=== PATIENT | female | born 1995 | race Two or more races ===

== ENCOUNTER 2024-07-10 15:04 | Outpatient (RCR) | payer MEDICAID, SELFPAY | END 2024-07-30 23:59 | disposition home or self-care (01) | LOC: SCTC 15:04 | PROVIDERS: PCP Nurse Practitioner Family; Referring Provider Nurse Practitioner Family; Visit Provider Nurse Practitioner Family | DX: D50.9 Iron deficiency anemia, unspecified (principal); N92.0 Excessive and frequent menstruation with regular cycle; E03.9 Hypothyroidism, unspecified | CPT/HCPCS: 99212; G0463 ==

== ENCOUNTER 2025-01-28 15:46 | Emergency (ER) | payer MEDICAID, SELFPAY ==
[2025-01-28 15:47] VITALS: BMI 21.7
[2025-01-28 16:49] VITALS: BP 130/71; PULSE 77; RESP 20; TEMP 37.3; O2SAT 99
--- NOTE | 2025-01-28 17:10 | XR_ITS ---
Examination: CT abdomen and pelvis without contrast. Coronal 3-D reconstructions. Sagittal 2-D reconstructions. Date and time of exam: January 28, 2025, 1858 hours INDICATIONS: Onset right-sided flank pain radiating to the pelvis 2 days CTDI: vol (mGy): 5.92 DLP: (mGycm): 325 Technique: Axial images of the abdomen have been obtained, 3 mm slice thickness Intravenous contrast material has not been administered. Low dose protocols were performed. One or more of the following dose reduction techniques were used; automated exposure control, adjustment of the mA and/or KV according to patient size, use of iterative reconstruction technique. 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
--- NOTE | 2025-01-28 17:10 | EDRME_ITS ---
Rapid Medical Screening Exam E Arrival date/time: 01/28/25 15:46 29-year-old female presents to the emergency department today for complaints of right-sided flank pain radiating to abdomen Chief Complaint: Abdominal Pain Time Seen by Provider: 01/28/25 15:55 Vital signs: Vital Signs Temperature 99.1 F 01/28/25 16:49 Pulse Rate 77 01/28/25 16:49 Respiratory Rate 20 01/28/25 16:49 Blood Pressure 130/71 01/28/25 16:49 Pulse Oximetry (%) 99 01/28/25 16:49 Oxygen Delivery Method Room Air 01/28/25 16:49 Exam: On exam patient has right flank pain radiating to the inguinal region Neurological: GCS 15 Negative Portillo sign negative [place]'s point tenderness Clinical Impression: Clinically patient appears to be quite a bit of pain Lab work and imaging ordered
[2025-01-28] MEDS: HYDROcodone/APAP 5/325 TABLET 1 TAB PO (17:40)
[2025-01-28] MEDS: KETOROLAC INJ 30 MG/ML VIAL IM (17:40)
[2025-01-28] MEDS: ONDANSETRON ODT 4 MG TABRAP PO (17:40)
[2025-01-28 17:48] LABS: Basophils # (Auto) 0.0 Thou/mm3 (0.0-0.2); Basophils % (Auto) 0 % (0-2.5); Eosinophils # (Auto) 0.1 Thou/mm3 (0.0-0.5); Eosinophils % (Auto) 1 % (0-10); Hematocrit 29.2 % (36.0-46.0); Hemoglobin 10.1 g/dL (12.0-16.0); Immature Granulocytes Auto 0.04 Thou/mm3 (0.00-0.00); Lymphocytes # (Auto) 1.3 Thou/mm3 (1.0-4.8); Lymphocytes % (Auto) 13 % (10-50); Mean Corpuscular HGB Conc 34.6 g/dl (31.0-37.0); Mean Corpuscular Hemoglobin 30.1 pg (25.0-35.0); Mean Corpuscular Volume 87 fL (80-100); Monocytes # (Auto) 0.6 Thou/mm3 (0.0-0.8); Monocytes % (Auto) 6 % (0-12); Neutrophils # (Auto) 8.1 Thou/mm3 (1.8-7.7); Neutrophils % (Auto) 80 % (37-80); Nucleated Red Blood Cell # 0.00 Thou/mm3 (0.00-0.00); Nucleated Red Blood Cell % 0 /100 WBC (0); Platelet Count 247 Thou/mm3 (140-440); RDW Standard Deviation 40.8 fL (36.4-46.3); Red Blood Count 3.35 Miln/mm3 (4.00-5.20); White Blood Count 10.1 Thou/mm3 (3.6-11.0)
[2025-01-28 18:06] LABS: Collection Type, Urine Clean Catch
[2025-01-28 18:29] LABS: Alanine Aminotransferase 8 U/L (10-49); Albumin, Serum 4.9 gm/dL (3.5-5.0); Albumin/Globulin Ratio 2.9 (1.2-2.2); Alkaline Phosphatase 50 U/L (46-116); Anion Gap 11 (7-16); Aspartate Amino Transferase 17 U/L (0-34); BUN/Creatinine Ratio 13 Ratio (12-20); Bilirubin,Total 0.6 mg/dL (0.3-1.2); Blood Urea Nitrogen 10 mg/dL (9-23); Calcium 8.8 mg/dL (8.3-10.6); Calcium (Corrected) 8.8 mg/dL (8.5-10.1); Carbon Dioxide 25.1 mMol/L (20.0-31.0); Chloride 108 mMol/L (98-107); Creatinine (Component) 0.8 mg/dL (0.6-1.3); Estimated Creatinine Clearance 97.1 mL/min (>60); Globulin 1.7 gm/dL (2.3-3.5); Glucose 108 mg/dL (74-106); Lipase 25 U/L (12-53); Osmolality,Calculated 286 (275-295); Potassium 3.7 mMol/L (3.4-5.1); Sodium 144 mMol/L (136-145); Total Protein 6.6 gm/dL (5.7-8.2); eGFR > 60 See Note
[2025-01-28 18:31] LABS: HCG Qualitative,Urine Negative
[2025-01-28 18:38] LABS: Bilirubin,Urine Negative (Negative); Blood,Urine 3+ (Negative); Clarity,Urine Turbid (Clear/Hazy); Color,Urine Lt-Yellow (Lt Yel-Yel); Culture Indicated,Urine Yes; Glucose, Urine Negative (Negative); Ketones,Urine Negative (Negative); Leukocyte Esterase,Urine Positive (Negative); Nitrite,Urine Negative (Negative); PH,Urine 5.5 (5.0-7.0); Protein,Urine Negative (Neg - Trace); RBC,Urine 779 /hpf (0-3); Specific Gravity,Urine 1.019 (1.001-1.035); Squamous Epithelial Cell,Urine 9 /hpf (0-5); Urobilinogen,Urine Negative mg/dL (0.0-1.0); WBC,Urine 22 /hpf (0-5)
--- NOTE | 2025-01-28 20:50 | XR_ITS ---
Examination: CT abdomen with intravenous contrast CT pelvis with intravenous contrast 2-D coronal reconstructions 2-D sagittal reconstructions Date and time of exam: January 28, 2025, 10 0 6:00 p.m., comparison January 28, 2025 1902 hours INDICATIONS: Right lower abdominal pain this week. CTDI: vol (mGy) 6.29 DLP: (mGycm) 326 Technique: Multiple axial sections of the abdomen and pelvis have been obtained. 64 slice high-resolution scanner used. 3 mm axial sections have been obtained, post intravenous injection 60 cc Isovue-370 2-D sagittal, coronal reconstructions obtained. Low dose protocols were performed. One or more of the following dose reduction techniques were used; automated exposure control, adjustment of the mA and/or KV according to patient size, use of iterative reconstruction technique. Findings: No focal liver or splenic lesions No gallstones Mild hydronephrosis on the right Dependent density in the right renal pelvis consistent with hemorrhage No renal or ureteral calculi No bowel obstruction Normal appendix Mild free fluid in the pelvis Multiple right adnexal septated small cysts Bladder intact Osseous structures intact IMPRESSION: Findings remain consistent with hemorrhage in the dilated right renal collecting system, recommend urology consultation and retrograde pyelograms follow-up Impression of the earlier study should read: Suspect primary hepatocellular disease
[2025-01-28 20:58] VITALS: BP 107/67; PULSE 65; RESP 14; TEMP 36.8; O2SAT 99
--- NOTE | 2025-01-28 21:23 | PD.EDABDPN ---
ED Abdominal Pain RME/HPI General Chief Complaint: Abdominal Pain Stated complaint: R LOWER BACK RADIATING TO R LOWER ABD PAIN Time seen by provider: 01/28/25 15:55 Arrival date/time: 01/28/25 15:46 RME / HPI RME / HPI narrative: 01/28/25 15:46 29-year-old female presents to the emergency department today for complaints of right-sided flank pain radiating to abdomen Dr. Vidales?s Main ED Evaluation: 29yo female with a history of hypothyroidism presents to the ED for a chief complaint of right lower back pain that radiates to her RLQ/pelvic area x 2 days. Patient denies any N/V, fever, chills, or any other associated symptoms. She denies any tobacco, alcohol, or illicit drug use. She denies any history of similar symptoms. NKA. Related Data Previous Rx's ?Medication ?Instructions ?Recorded ferrous sulfate 325 mg (65 mg 325 mg PO BID #60 tabs 03/27/20 iron) tablet ibuprofen 600 mg tablet 600 mg PO Q6H PRN pain #30 tabs 12/15/23 methocarbamol 750 mg tablet 750 mg PO TID PRN pain #20 tabs 12/15/23 Allergies Allergy/AdvReac Type Severity Reaction Status Date / Time No Known Allergies Allergy Verified 01/28/25 15:50 Review of Systems Review of Systems Systems Reviewed: All systems reviewed, normal except as documented Past Medical History Past Medical History CARDIAC: Negative Cardiac Disorders or Congestive Heart Failure RESPIRATORY: Positive Asthma; Negative Chronic Obstructive Pulmonary Disease (COPD) GENITOURINARY: Negative Renal Disease REPRODUCTIVE: Positive Previous Pregnancies (C SECTION 2016) ENDOCRINE: Positive Hypothyroidism; Negative Diabetes Mellitus Type 1 or Diabetes Mellitus Type 2 HEMATOLOGIC: Positive Anemia; Negative Sickle Cell Disease Surgical History SURGICAL: Positive Section Social History SMOKING STATUS: Never smoker SUBSTANCE USE: does not use ED Exam Narrative Physical exam: Generally patient is alert in no obvious distress, heart regular rate and rhythm, lungs clear to auscultation equal bilaterally, abdomen soft bowel sounds present nondistended nontender, musculoskeletal exam showed the patient had mild right-sided costovertebral angle tenderness Course Course Course Narrative: [facility] declined the patient for transfer due to not having urology available. 2330: Discussed case with [facility]'s transfer center. Discussed patients ED course, exam findings, labs, and radiology results. Awaiting callback. 0004: Discussed case with Dr. Knight, urologist from [facility], regarding possible transfer. Discussed patients ED course, exam findings, labs, and radiology results. Recommends having the patient follow-up with him as an outpatient. Quality Measures none Orders Category Date Time Status CT Screening NOW Care 01/28/25 20:51 Active Insert IV NOW Care 01/28/25 21:[address] abdomen pelvis w con Stat Exams 01/28/25 20:[address] abdomen pelvis wo con Stat Exams 01/28/25 17:10 Completed CBC Stat Lab 01/28/25 17:34 Completed Comprehensive Metabolic Panel Stat Lab 01/28/25 17:34 Completed HCG Qualitative,Urine Stat Lab 01/28/25 17:48 Completed Lipase Stat Lab 01/28/25 17:34 Completed UA, C/S IF [Urinalysis, C/S if Indicated] Stat Lab 01/28/25 17:48 Completed Urine Culture Stat Lab 01/28/25 17:48 Received HYDROcodone*/APAP 5/325 [Kidder 5/325] Med 01/28/25 17:09 Discontinued 1 tab PO X1 ONE Ketorolac Inj [Toradol Inj] Med 01/28/25 17:09 Discontinued 30 mg IM X1 ONE Morphine* Inj Med 01/28/25 22:45 Discontinued 4 mg IV X1 ONE Ondansetron Odt [Zofran Odt] Med 01/28/25 17:09 Discontinued 4 mg PO X1 ONE Vital Signs Vital signs: Vital Signs Temperature 99.1 F 01/28/25 16:49 Pulse Rate 77 01/28/25 16:49 Respiratory Rate 20 01/28/25 16:49 Blood Pressure 130/71 01/28/25 16:49 Pulse Oximetry (%) 99 01/28/25 16:49 Oxygen Delivery Method Room Air 01/28/25 16:49 Abdominal Pain MDM MDM Narrative MDM Narrative:: Scribe Attestation: 01/28/25 - I, Priscilla Yusuf, am scribing for and in the presence of Dr. Vidales. Patient is nontoxic in appearance. Patient is afebrile. There is no leukocytosis. Renal function is normal. CT scan done of the abdomen pelvis with IV contrast showed evidence for possible hemorrhage in the right renal pelvis with mild to moderate hydronephrosis. No renal or ureteral calculi were seen. Urinalysis showed evidence for RBCs and WBCs but no bacteria. I do not believe the patient to be infected. I spoke with urologist from [place], Dr. KNIGHT who is willing to see the patient as an outpatient. Since the patient's pain is controlled and the patient is nontoxic in appearance with stable vital signs he does not believe this patient needs to be transferred. Patient data External records reviewed:: [facility] previous records (Per chart review, patient was seen here on 02/21/19 for abdominal pain.) Clinical information provided by:: patient Social determinants that could affect healthcare access:: none Patient has the following chronic illnesses:: asthma, anemia, hypothyroidism How is presenting disease/condition affected by chronic disease/condition?: uneffected by Evaluation data The following diagnostics were reviewed and interpreted by me:: lab results and radiology exam(s) Lab and/or radiology exams considered but not ordered:: none Interpretation Summary: [facility] Report Signed Patient: MAMADOU SHAY. Record#: [id number] Birthdate: 1995 Age/Sex: 29 / F Location: [facility] Attending Dr: Ordering Physician: Deidre ALVAREZ)Valdo NP Date of Service: 01/28/25 Procedure(s): CT abdomen pelvis wo con Accession Number(s): [id number] cc: Deidre ALVAREZ),Valdo PHILLIPS; Pritesh Cuellar MD~ Examination: CT abdomen and pelvis without contrast. Coronal 3-D reconstructions. Sagittal 2-D reconstructions. Date and time of exam: January 28, 2025, 1858 hours INDICATIONS: Onset right-sided flank pain radiating to the pelvis 2 days CTDI: vol (mGy): 5.92 DLP: (mGycm): 325 Technique: Axial images of the abdomen have been obtained, 3 mm slice thickness Intravenous contrast material has not been administered. Low dose protocols were performed. One or more of the following dose reduction techniques were used; automated exposure control, adjustment of the mA and/or KV according to patient size, use of iterative reconstruction technique. 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 Record#: [id number] Birthdate: 1995 Age/Sex: 29 / F [facility] Att[facility] Dr: Ordering Physician: Renuka Bhagat PA-C Date of Service: 01/28/25 Procedure(s): CT abdomen pelvis w justice Accession Number(s): [id number] cc: Pritesh Cuellar MD; NO PRIMARY/FAMILY,PHYSICIAN; Renuka Bhagat PA-C~ Examination: CT abdomen with intravenous contrast CT pelvis with intravenous contrast 2-D coronal reconstructions 2-D sagittal reconstructions Date and time of exam: January 28, 2025, 10 0 6:00 p.m., comparison January 28, 2025 1902 hours INDICATIONS: Right lower abdominal pain this week. CTDI: vol (mGy) 6.29 DLP: (mGycm) 326 Technique: Multiple axial sections of the abdomen and pelvis have been obtained. 64 slice high-resolution scanner used. 3 mm axial sections have been obtained, post intravenous injection 60 cc Isovue-370 2-D sagittal, coronal reconstructions obtained. Low dose protocols were performed. One or more of the following dose reduction techniques were used; automated exposure control, adjustment of the mA and/or KV according to patient size, use of iterative reconstruction technique. Findings: No focal liver or splenic lesions No gallstones Mild hydronephrosis on the right Dependent density in the right renal pelvis consistent with hemorrhage No renal or ureteral calculi No bowel obstruction Normal appendix Mild free fluid in the pelvis Multiple right adnexal septated small cysts Bladder intact Osseous structures intact IMPRESSION: Findings remain consistent with hemorrhage in the dilated right renal collecting system, recommend urology consultation and retrograde pyelograms follow-up Impression of the earlier study should read: Suspect primary hepatocellular disease Dictated By: Pritesh Cuellar MD Signed By: <Electronically signed by Pritesh Cuellar MD in OV> 01/28/25 2244 Medications / Prescriptions Medications or Prescriptions considered but not ordered:: none Medication administrations:: Medication Administration History Discontinued Medications Hydrocodone Bitart/Acetaminophen (Hydrocodone/Apap 5/325 Tablet) 1 tab PO X1 ONE Stop: 01/28/25 17:10 Last Admin: 01/28/25 17:40 Dose: 1 tab Documented By: Ketorolac Tromethamine (Ketorolac Inj 30 Mg/Ml Vial) 30 mg IM X1 ONE Stop: 01/28/25 17:10 Last Admin: 01/28/25 17:40 Dose: 30 mg Documented By: Morphine Sulfate (Morphine Sulf Inj 4 Mg/Ml Vial) 4 mg IV X1 ONE Stop: 01/28/25 22:46 Last Admin: 01/28/25 23:01 Dose: 4 mg Documented By: AC Ondansetron HCl (Ondansetron Odt 4 Mg Tabrap) 4 mg PO X1 ONE; Protocol Stop: 01/28/25 17:10 Last Admin: 01/28/25 17:40 Dose: 4 mg Documented By: see above Consultations Consultation(s) initiated? (list below): Yes Diagnosis Differential diagnosis abdominal pain: other (See MDM) Most likely diagnosis given after review of the tests above:: see clinical impression below Admission Indicated Admission indicated?: not indicated Admission Request Was there a request for admission?: No Disposition Plan Disposition Plan: Discharge Discharge Attestation Discharge Attestation: The patient and all family members were given an opportunity to ask questions and understood the discharge instructions. Discharge instructions specifically effects, indications for sooner follow up or return to the emergency department, and the expected course of current diagnosis. Patient condition: Stable Discharge Plan Plan Patient Disposition: HOME (Self Care) Prescriptions/Referrals Prescriptions/Med Rec: No Action ferrous sulfate 325 mg (65 mg iron) tablet 325 mg PO BID Qty: 60 0RF ibuprofen 600 mg tablet 600 mg PO Q6H PRN (Reason: pain) Qty: 30 0RF methocarbamol 750 mg tablet 750 mg PO TID PRN (Reason: pain) Qty: 20 0RF Referrals: No Primary/Family,Physician [Primary Care Provider] - In 1 week Problem List Clinical Impression: Renal hemorrhage, right Patient/Caregiver Discharge Instructions Additional Instructions: Your case was discussed with urologist in [place], Dr. Knight. He will follow you up in his office. You may call his office at [phone] for an appointment time. Make this phone call later today. Print Language: Chadian Stand Alone Forms: [facility] Award Info., Patient Portal Info Letter
[2025-01-28] MEDS: MORPHINE SULF INJ 4 MG/ML VIAL IV (23:01)
[2025-01-28 23:04] VITALS: BP 127/76; PULSE 63; RESP 18; O2SAT 100
--- NOTE | 2025-01-28 23:30 | PC.NURSE ---
[address]. PT DECLINED NO UROLOGY SERVICES. [address] SENT, DR VALENTINE SPEAKING WITH TRN.
[2025-01-29 00:05] VITALS: BP 99/56; PULSE 66; RESP 18; TEMP 36.9; O2SAT 99
[2025-01-29 00:37] VITALS: PULSE 57; RESP 16; O2SAT 100
[2025-01-29] MEDS: KETOROLAC INJ 30 MG/ML VIAL IM (00:48)
== END 2025-01-29 01:00 | disposition home or self-care (01) ==
PROVIDERS: Nurse Practitioner Primary Care; Emergency Provider Emergency Medicine
DX: N13.30 Unspecified hydronephrosis (principal); E03.9 Hypothyroidism, unspecified
CPT/HCPCS: 36415; 74176; 74177; 80053; 81001; 81025; 83690; 85025; 87077; 87086; 87186; 96372; 99284; A4649; J1885; J2270; Q0162; Q9967; A9270

== ENCOUNTER 2025-01-30 14:05 | Emergency (ER) | payer MEDICAID, SELFPAY ==
[2025-01-30 14:18] VITALS: BP 103/69; PULSE 113; RESP 19; TEMP 37.2; O2SAT 98; BMI 20.7
--- NOTE | 2025-01-30 14:25 | XR_ITS ---
Examination: CT abdomen and pelvis without contrast. Coronal 3-D reconstructions. Sagittal 2-D reconstructions. Date and time of exam: January 30, 2025, 1551 hours INDICATIONS: Right-sided flank pain beginning 4 days ago CTDI: vol (mGy): 6.06 DLP: (mGycm): 343 Technique: Axial images of the abdomen have been obtained, 3 mm slice thickness Intravenous contrast material has not been administered. Low dose protocols were performed. One or more of the following dose reduction techniques were used; automated exposure control, adjustment of the mA and/or KV according to patient size, use of iterative reconstruction technique. Findings: No focal liver or splenic lesions No gallstones No pancreatic or adrenal mass. Subtle areas of hyperdensity in the right kidney with edema and perinephric stranding No ureteral calculi Moderate free fluid in the pelvis No bladder mass or bladder calculi Normal appendix No bowel obstruction IMPRESSION: Suspicious for right pyelonephritis Moderate free fluid in the pelvis, recommend pelvic sonography follow-up
--- NOTE | 2025-01-30 14:26 | PD.EDRME ---
Rapid Medical Screening Exam RME Arrival date/time: 01/30/25 14:05 29-year-old female presents to the emerged from today stating she has flank pain patient was seen on the and CT scan findings consistent with hemorrhage and a dilated right renal collecting system per radiologist Chief Complaint: Back Pain/Injury Vital signs: Vital Signs Temperature 99.0 F 01/30/25 14:18 Pulse Rate 113 H 01/30/25 14:18 Respiratory Rate 19 01/30/25 14:18 Blood Pressure 103/69 01/30/25 14:18 Pulse Oximetry (%) 98 01/30/25 14:18 Oxygen Delivery Method Room Air 01/30/25 14:18 Vital signs reviewed by provider: Yes Exam: On exam patient is tenderness in the flank region Clinical Impression: Labs and imaging ordered
[2025-01-30 15:04] LABS: Collection Type, Urine Clean Catch
[2025-01-30 15:08] LABS: Basophils # (Auto) 0.0 Thou/mm3 (0.0-0.2); Basophils % (Auto) 0 % (0-2.5); Eosinophils # (Auto) 0.0 Thou/mm3 (0.0-0.5); Eosinophils % (Auto) 0 % (0-10); Hematocrit 29.0 % (36.0-46.0); Hemoglobin 9.8 g/dL (12.0-16.0); Immature Granulocytes Auto 0.06 Thou/mm3 (0.00-0.00); Lymphocytes # (Auto) 0.9 Thou/mm3 (1.0-4.8); Lymphocytes % (Auto) 7 % (10-50); Mean Corpuscular HGB Conc 33.8 g/dl (31.0-37.0); Mean Corpuscular Hemoglobin 29.8 pg (25.0-35.0); Mean Corpuscular Volume 88 fL (80-100); Monocytes # (Auto) 0.9 Thou/mm3 (0.0-0.8); Monocytes % (Auto) 8 % (0-12); Neutrophils # (Auto) 10.2 Thou/mm3 (1.8-7.7); Neutrophils % (Auto) 84 % (37-80); Nucleated Red Blood Cell # 0.00 Thou/mm3 (0.00-0.00); Nucleated Red Blood Cell % 0 /100 WBC (0); Platelet Count 172 Thou/mm3 (140-440); RDW Standard Deviation 42.4 fL (36.4-46.3); Red Blood Count 3.29 Miln/mm3 (4.00-5.20); White Blood Count 12.2 Thou/mm3 (3.6-11.0)
[2025-01-30 15:22] LABS: INR 1.1 (0.9-1.3); Partial Thromboplastin Time 33.1 Seconds (22.0-36.0); Prothrombin Time 12.1 Seconds (9.0-12.2)
[2025-01-30 15:32] LABS: HCG Qualitative,Urine Negative
[2025-01-30 15:33] LABS: Bilirubin,Urine Negative (Negative); Blood,Urine 3+ (Negative); Clarity,Urine Turbid (Clear/Hazy); Color,Urine Yellow (Lt Yel-Yel); Glucose, Urine Negative (Negative); Ketones,Urine 1+ (Negative); Leukocyte Esterase,Urine Positive (Negative); Nitrite,Urine Negative (Negative); PH,Urine 6.5 (5.0-7.0); Protein,Urine 2+ (Neg - Trace); RBC,Urine 14 /hpf (0-3); Specific Gravity,Urine 1.014 (1.001-1.035); Squamous Epithelial Cell,Urine 10 /hpf (0-5); Urobilinogen,Urine Negative mg/dL (0.0-1.0); WBC,Urine 296 /hpf (0-5)
[2025-01-30 15:35] LABS: Alanine Aminotransferase 8 U/L (10-49); Albumin, Serum 4.7 gm/dL (3.5-5.0); Albumin/Globulin Ratio 2.5 (1.2-2.2); Alkaline Phosphatase 49 U/L (46-116); Anion Gap 10 (7-16); Aspartate Amino Transferase 18 U/L (0-34); BUN/Creatinine Ratio 8 Ratio (12-20); Bilirubin,Total 1.1 mg/dL (0.3-1.2); Blood Urea Nitrogen 8 mg/dL (9-23); Calcium 9.0 mg/dL (8.3-10.6); Calcium (Corrected) 9.0 mg/dL (8.5-10.1); Carbon Dioxide 25.6 mMol/L (20.0-31.0); Chloride 103 mMol/L (98-107); Creatinine (Component) 1.0 mg/dL (0.6-1.3); Estimated Creatinine Clearance 78.7 mL/min (>60); Globulin 1.9 gm/dL (2.3-3.5); Glucose 128 mg/dL (74-106); Lipase 19 U/L (12-53); Osmolality,Calculated 277 (275-295); Potassium 3.4 mMol/L (3.4-5.1); Sodium 139 mMol/L (136-145); Total Protein 6.6 gm/dL (5.7-8.2); eGFR > 60 See Note
[2025-01-30 15:41] LABS: Culture Indicated,Urine Yes
[2025-01-30] MEDS: HYDROcodone/APAP 5/325 TABLET 1 TAB PO ×2 (16:54→20:33)
--- NOTE | 2025-01-30 19:27 | PRELIM_ITS ---
CT scan of the abdomen and pelvis without intravenous contrast (axial sections with sagittal and coronal reformats) January 30, 2025 15:51 hours Clinical History: Abdominal pain Comparison: No prior study is available for comparison. Findings: The lung bases are clear. Dependent hyperdensity is identified within the gallbladder, which may represent sludge. The right kidney is enlarged with perinephric fat stranding. No evidence of hydronephrosis or obstructing calculus. The liver, pancreas, spleen, left kidney, and adrenals are unremarkable on this noncontrast study. No evidence of bowel obstruction. The appendix is not definitively visualized; however, there is no evidence of inflammatory process in the right lower quadrant to suggest appendicitis. There is no mesenteric or retroperitoneal adenopathy. The urinary bladder is unremarkable. The uterus and adnexa are unremarkable. There is trace free fluid in the pelvis. There is no free air. The osseous structures are unremarkable. Impression: Findings consistent with acute right pyelonephritis. Report Electronically Signed By: Isa Daniels 01/30/2025 7:27:28 PM [EST]
--- NOTE | 2025-01-30 19:53 | EDNOTE_ITS ---
ED Female Urogenital RME/HPI General Chief complaint: Back Pain/Injury Stated complaint: Right lower back, QUINTERO, vomiting Time Seen by Provider: 01/30/25 16:10 Arrival date/time: 01/30/25 14:05 RME / HPI RME / HPI Narrative: 01/30/25 14:05 29-year-old female presents to the emerged from today stating she has flank pain patient was seen on the and CT scan findings consistent with hemorrhage and a dilated right renal collecting system per radiologist DR. VALENTINE MAIN ED EVALUATION: 29 y/o female presents to ED c/o increased right flank pain and hot flashes x 1 week. Patient was seen in ED 2 days [facility] and underwent CT and CT with contrast demonstrating no renal masses, but a possible hemorrhage in the right renal pelvis. Patient was referred to Dr. Knight at [facility] for further evaluation and treatment. Patient returns to ED as she was turned away due to insurance coverage and practice not taking in new patients. Exam: On exam patient is tenderness in the flank region Impression: Labs and imaging ordered Related Data Previous Rx's ?Medication ?Instructions ?Recorded ferrous sulfate 325 mg (65 mg 325 mg PO BID #60 tabs 1 05/28/19 iron) tablet ibuprofen 600 mg tablet 600 mg PO Q6H PRN pain #30 t abs 12/15/23 methocarbamol 750 mg tablet 750 mg PO TID PRN pain #20 tabs 12/15/23 cephalexin 500 mg capsule 1,000 mg (2 x 500 mg) PO BID 7 01/30/25 days #28 caps Allergies Allergy/AdvReac Type Severity Reaction Status Date / Time No Known Allergies Allergy Verified 01/30/25 14:11 Review of Systems Review of Systems Systems Reviewed: All systems reviewed, normal except as documented Past Medical History Past Medical History RESPIRATORY: Positive Asthma REPRODUCTIVE: Positive Previous Pregnancies ENDOCRINE: Positive Hypothyroidism HEMATOLOGIC: Positive Anemia Surgical History SURGICAL: Positive Section ED Exam Narrative Physical exam: Generally patient is alert and in no obvious distress, heart regular rate and rhythm, lungs clear to auscultation equal bilaterally, abdomen soft bowel sounds present nondistended nontender, musculoskeletal exam showed the patient had minimal right-sided costovertebral angle tenderness, skin is warm pale and dry, neurologic exam shows Tito Coma Scale of 15 Course Quality Measures none Orders Category Date Time Status CT abdomen pelvis wo con Stat Exams 01/30/25 14:25 Completed CBC Stat Lab 01/30/25 14:45 Completed Comprehensive Metabolic Panel Stat Lab 01/30/25 14:45 Completed HCG Qualitative,Urine Stat Lab 01/30/25 14:33 Completed Lipase Stat Lab 01/30/25 14:45 Completed PT [Prothrombin Time with INR] Stat Lab 01/30/25 14:45 Completed PTT [Partial Thromboplastin Time] Stat Lab 01/30/25 14:45 Completed UA, C/S IF [Urinalysis, C/S if Indicated] Stat Lab 01/30/25 14:33 Completed Urine Culture Stat Lab 01/30/25 14:33 Received HYDROcodone*/APAP 5/325 [[place] 5/325] Med 01/30/25 16:50 Discontinued 1 tab PO X1 ONE Sodium Chloride 0.9% 1000 ml [Ns] 1,000 ml Med 01/30/25 19:54 Active IV 999 mls/hr cefTRIAXone/D5w 1gm IV premix [Rocephin/D5w 1gm IV Med 01/30/25 19:54 Active premix] 1 gm in 50 ml IV X1 Vital Signs Vital signs: Vital Signs Temperature 99.0 F 01/30/25 14:18 Pulse Rate 113 H 01/30/25 14:18 Respiratory Rate 19 01/30/25 14:18 Blood Pressure 103/69 01/30/25 14:18 Pulse Oximetry (%) 98 01/30/25 14:18 Oxygen Delivery Method Room Air 01/30/25 14:18 Urogenital - Female MDM Narrative MDM Narrative:: Scribe Attestation: Georgia Heller, am scribing for and in the presence of Dr. Valentine. Provider Notation: Although this document has been carefully reviewed, there may still be some phonetic and other typographical errors. These errors are purely grammatical due to imperfections in the software program and should not be construed in any way to compromise the substance of the patient's medical care during this visit. I saw the patient 2 days ago. She had hyperdensity within the right renal pelvis of uncertain significance. She had minimal white blood cells and no bacteria in the urine but the patient did have red blood cells in the urine. I consulted urologist Dr. Knight at [facility] in [place] who reviewed the case and stated that he would follow-up the patient as an outpatient. Apparently the patient tried to contact Dr. Knight but there appeared to be a problem with follow-up. Patient continues to have right flank pain. The CAT scan of the abdomen and pelvis done without contrast and with contrast 2 days ago showed no renal mass but showed a hyperdensity within the right renal pelvis. Today the CT scan of the abdomen and pelvis without contrast showed only very slight hyperdensity within the right kidney but this was not within the renal pelvis and without hydronephrosis. The urinalysis today shows a less red blood cells than 2 days ago but more white blood cells than 2 days ago. Both of the urinalyses for 2 days ago and today showed no bacteria. At this point I think it is prudent to treat this patient for infection. Patient will receive Rocephin 1 g IV and was hydrated with a liter normal saline. Patient has no fever with a white blood cell count of 12,000. Vital signs are stable with a slight tachycardia at 110. patient is nontoxic in appearance. Patient will be discharged on a prescription for cephalexin to be taken as prescribed. Follow-up with her doctor or return to the emergency room if condition worsens. Patient data External records reviewed:: [facility] previous records (Reviewed prior ED records from 01/28/25. Patient was seen for Renal hemorrhage, right.) Clinical information provided by:: patient and spouse () Social determinants that could affect healthcare access:: none Patient has the following chronic illnesses:: Asthma, Hypothyroidism, Anemia How is presenting disease/condition affected by chronic disease/condition?: uneffected by Evaluation data The following diagnostics were reviewed and interpreted by me:: lab results and radiology exam(s) Lab and/or radiology exams considered but not ordered:: None Interpretation Summary: RADIOLOGY Abdomen/Pelvis: Findings: No focal liver or splenic lesions No gallstones No pancreatic or adrenal mass. Subtle areas of hyperdensity in the right kidney with edema and perinephric stranding No ureteral calculi Moderate free fluid in the pelvis No bladder mass or bladder calculi Normal appendix No bowel obstruction IMPRESSION: Suspicious for right pyelonephritis Moderate free fluid in the pelvis, recommend pelvic sonography follow-up Medications / Prescriptions Medications or Prescriptions considered but not ordered:: None Medication administrations:: Medication Administration History Ceftriaxone Sodium/Dextrose (Rocephin/D5w 1gm Iv Premix) 1 gm in 50 mls @ 100 mls/hr IV X1 ONE Stop: 01/30/25 20:23 Last Admin: 01/30/25 20:03 Dose: 100 mls/hr Documented By: WO Sodium Chloride (Ns) 1,000 mls @ 999 mls/hr IV .Q1H1M ONE Stop: 01/30/25 20:54 Last Admin: 01/30/25 20:03 Dose: 999 mls/hr Documented By: WO Discontinued Medications Hydrocodone Bitart/Acetaminophen (Hydrocodone/Apap 5/325 Tablet) 1 tab PO X1 ONE Stop: 01/30/25 16:51 Last Admin: 01/30/25 16:54 Dose: 1 tab Documented By: ED See above if any Consultations Consultation(s) initiated? (list below): No Diagnosis Urogenital Female Differential Diagnosis: urinary tract infection, cystitis and other (Pyelonephritis) Most likely diagnosis given after review of the tests above:: None Admission Indicated Admission indicated?: not indicated Explain why admission is indicated or not indicated:: Patient does not meet admission criteria Admission Request Was there a request for admission?: No Disposition Plan Disposition Plan: Discharge Discharge Attestation Discharge Attestation: The patient and all family members were given an opportunity to ask questions and understood the discharge instructions. Discharge instructions specifically effects, indications for sooner follow up or return to the emergency department, and the expected course of current diagnosis. Patient condition: Stable Discharge Plan Plan Patient Disposition: HOME (Self Care) Prescriptions/Referrals Prescriptions/Med Rec: New cephalexin 500 mg capsule 1,000 mg PO BID 7 Days Qty: 28 0RF No Action ferrous sulfate 325 mg (65 mg iron) tablet 325 mg PO BID Qty: 60 0RF ibuprofen 600 mg tablet 600 mg PO Q6H PRN (Reason: pain) Qty: 30 0RF methocarbamol 750 mg tablet 750 mg PO TID PRN (Reason: pain) Qty: 20 0RF Referrals: No Primary/Family,Physician [Primary Care Provider] - In 1 week Problem List Clinical Impression: UTI (urinary tract infection) Patient/Caregiver Discharge Instructions Education Materials: ED CYSTITIS Female Adult Additional Instructions: Take the antibiotic as prescribed. Return to ER if pain worsens. Print Language: Georgian Stand Alone Forms: [facility] Award Info., Patient Portal Info Letter
[2025-01-30 19:58] VITALS: BP 106/58; PULSE 113; RESP 19; TEMP 37.5; O2SAT 98
[2025-01-30] MEDS: SODIUM CHLORIDE 0.9% 1000 ML 1,000 ML 999 ML IV (20:03)
[2025-01-30] MEDS: cefTRIAXone/D5w 1gm IV premix 1 GM/50 ML BAG IV (20:03)
[2025-01-30 20:30] VITALS: BP 106/58; PULSE 93; RESP 19; TEMP 37.5; O2SAT 98
== END 2025-01-30 20:57 | disposition home or self-care (01) ==
PROVIDERS: Nurse Practitioner Primary Care; Emergency Provider Emergency Medicine
DX: N30.90 Cystitis, unspecified without hematuria (principal)
CPT/HCPCS: 36415; 74176; 80053; 81001; 81025; 83690; 85025; 85610; 85730; 87077; 87086; 87186; 96365; 99284; J0696; J7030; A9270